=== PATIENT | female | born 1965 | race Caucasian/White ===

== ENCOUNTER 2017-04-03 11:59 | Emergency (ER) | payer SELFPAY ==
[~2017-04-03] VITALS: Ht 162.6 cm; Wt 67.2 kg
[2017-04-03 16:56] VITALS: BP 128/76
== END 2017-04-03 16:56 | disposition home or self-care (01) ==
LOC: ED 11:59
PROC: 0HQFXZZ Repair Right Hand Skin, External Approach (ICD-10-PCS; principal; 2017-04-03)
PROC: 0HQFXZZ Repair Right Hand Skin, External Approach (ICD-10-PCS; 2017-04-03)
DX: S68.122A Partial traumatic metacarpophalangeal amputation of right middle finger, initial encounter (principal); S68.124A Partial traumatic metacarpophalangeal amputation of right ring finger, initial encounter; S61.210A Laceration without foreign body of right index finger without damage to nail, initial encounter; W29.0XXA Contact with powered kitchen appliance, initial encounter; Y92.000 Kitchen of unspecified non-institutional (private) residence as the place of occurrence of the external cause
CPT/HCPCS: 90715; J0696; J1885; J2001; J2270; J2405; J3010; J7040